=== PATIENT | female | born 1970 | race Caucasian/White ===

== ENCOUNTER 2023-01-11 18:50 | Emergency (ER) | payer OTHER ==
[~2023-01-11] VITALS: Ht 162.6 cm; Wt 64.0 kg
[2023-01-11 18:52] VITALS: O2SAT 98
[2023-01-11] MEDS ORDERED: CYCLOBENZAPRINE 10MG TABLET PO ONE (20:45)
[2023-01-11] MEDS ORDERED: KETOROLAC 30MG/ML VIAL IM ONE (20:45)
[2023-01-11 21:10] VITALS: BP 110/72
[2023-01-11] MEDS ORDERED: ACET-2708 MT (22:13)
[2023-01-11] MEDS ORDERED: LIDO700A15 TP (22:13)
[2023-01-11 22:39] VITALS: PULSE 95; RESP 18; TEMP 98.4
== END 2023-01-11 22:39 | disposition home or self-care (01) ==
LOC: ER 18:50
DX: S16.1XXA Strain of muscle, fascia and tendon at neck level, initial encounter (principal); Z88.0 Allergy status to penicillin; V49.9XXA Car occupant (driver) (passenger) injured in unspecified traffic accident, initial encounter; Y93.89 Activity, other specified; Y92.89 Other specified places as the place of occurrence of the external cause; Y99.8 Other external cause status
CPT/HCPCS: 81025; 73110; 70450; 72125; 96372; 99285; J1885; Z7610